=== PATIENT | female | born 1990 | race Asian ===

== ENCOUNTER 2020-01-08 15:16 | Emergency (ER) | payer OTHER ==
[~2020-01-08] VITALS: Ht 162.6 cm; Wt 77.1 kg
[2020-01-08 15:30] VITALS: TEMP 97.9
[2020-01-08 17:27] LABS: PLATELET COUNT 252 K/uL (152-353)
[2020-01-08 17:29] LABS: POTASSIUM 3.5 mmol/L (3.6-5.2)
[2020-01-08 19:17] VITALS: BP 112/69
== END 2020-01-08 19:17 | disposition home or self-care (01) ==
LOC: ED 15:16
PROVIDERS: Family Medicine
DX: K52.9 Noninfective gastroenteritis and colitis, unspecified (principal); E86.0 Dehydration; E87.6 Hypokalemia
CPT/HCPCS: 80053; 81000; 85027; 96360; 96375; 99284; J2405

== ENCOUNTER 2020-06-15 18:39 | Emergency (ER) | payer OTHER ==
[~2020-06-15] VITALS: Ht 162.6 cm; Wt 87.1 kg
[2020-06-15 19:30] VITALS: BP 106/77; TEMP 99.2
== END 2020-06-15 19:30 | disposition home or self-care (01) ==
LOC: ED 18:39
DX: T63.441A Toxic effect of venom of bees, accidental (unintentional), initial encounter (principal); R22.42 Localized swelling, mass and lump, left lower limb; Y92.89 Other specified places as the place of occurrence of the external cause
CPT/HCPCS: 96372; 99283; J1885; J2930

== ENCOUNTER 2020-06-18 09:11 | Emergency (ER) | payer OTHER ==
[~2020-06-18] VITALS: Ht 165.1 cm; Wt 88.5 kg
[2020-06-18 10:13] VITALS: BP 112/67; TEMP 98.9
== END 2020-06-18 10:13 | disposition home or self-care (01) ==
LOC: ED 09:11
PROC: 0Y9L3ZZ Drainage of Left Ankle Region, Percutaneous Approach (ICD-10-PCS; principal; 2020-06-18)
DX: S90.522A Blister (nonthermal), left ankle, initial encounter (principal)
CPT/HCPCS: 99283

== ENCOUNTER 2023-01-29 17:16 | Emergency (ER) | payer OTHER ==
[~2023-01-29] VITALS: Ht 160 cm; Wt 90.7 kg
[2023-01-29 17:20] VITALS: TEMP 99.2
[2023-01-29 18:26] LABS: PLATELET COUNT 246 K/uL (152-353)
[2023-01-29 18:34] LABS: POTASSIUM 3.5 mmol/L (3.6-5.2)
[2023-01-29 20:20] VITALS: BP 132/76
== END 2023-01-29 20:20 | disposition home or self-care (01) ==
LOC: ED 17:16
PROVIDERS: Emergency Medicine
DX: K52.89 Other specified noninfective gastroenteritis and colitis (principal); E87.6 Hypokalemia
CPT/HCPCS: 80053; 80307; 81002; 81025; 82150; 83690; 85027; 96361; 96372; 96374; 96375; 96376; 99284; J2175; J2405; J2550